=== PATIENT | female | born 1940 | race Caucasian/White ===

== ENCOUNTER → 2017-02-25 | Day surgery (SDC) | payer MEDICARE, BC ==
[~2017-02-25] VITALS: Ht 167.6 cm; Wt 80.6 kg
[~2017-02-25] MED LIST: ARICEPT10 MG PO; CALCIUM CARBON600 MG PO; CITRACAL+D(315M1 TAB PO; NORCO 5-325 TA1 EACH PO; OCUVITE WITH L1 EACH PO; PRAVACHOL20 MG PO; PROTONIX40 MG PO; VITAMIN B-125000 MC1 PO
--- NOTE | ~2017-02-25 | OR ---
PATIENT'S NAME: ESTEVAN [facility] AGE: 76 Y [address] ROOM: [place] [id number] LOCATION: [facility] – [place] ADMIT DATE: 02/25/2017 OR/Procedure Report DISCHARGE DATE: FAMILY PHYSICIAN: ARIANA CADENA APRN ATTENDING PHYSICIAN: Neri Galvan SURGEON: Neri Galvan MD YEAST TENDER: Addie Warner PA-C. DATE OF PROCEDURE: 02/25/2017 PREOPERATIVE DIAGNOSES: 1. Biliary colic. 2. Cholelithiasis. POSTOPERATIVE DIAGNOSIS: Chronic cholecystitis with cholelithiasis. PROCEDURE: Laparoscopic cholecystectomy. ANESTHESIA: General with 20 mL, 0.5% Marcaine with epinephrine. SPECIMEN: Gallbladder with gallstone. ESTIMATED BLOOD LOSS: Minimal. COMPLICATIONS: None. INDICATION: The patient is a 76-year-old young lady, who is a very active traveler who has been noticing for the last two months some multiple abdominal complaints. She has had some postprandial right upper quadrant epigastric discomfort as well as some lower abdominal discomfort with constipation and loose stools. She has had a previous colonoscopy within 2014 other than diverticulosis that was normal. Recent workup showed ultrasound and CAT scan both confirmed cholelithiasis with a distended gallbladder and mild thickening. Normal common bile duct. Normal liver function tests and white count. It was felt that the least majority of her symptoms could be contributed to biliary colic. We discussed laparoscopic cholecystectomy. She agreed to proceed. DESCRIPTION OF PROCEDURE: After informed consent, the patient was taken to the operating room; and after general endotracheal anesthesia, the patient's abdomen was prepped and draped into a sterile field. A formal time-out was performed. We confirmed the patient, planned procedure, administration of preop antibiotics. The local anesthetic was then infiltrated prior to each incision, the first one made below the umbilicus, carried down to identify the anterior fascia through which a Veress needle inserted and pneumoperitoneum created. An 11 mm trocar and laparoscope were inserted. Safe entry was PATIENT'S NAME: [facility]EVAN [facility] AGE: 76 Y [address] ROOM: [place] [address] LOCATION: [facility] – [place] ADMIT DATE: 02/25/2017 OR/Procedure Report DISCHARGE DATE: FAMILY PHYSICIAN: ARIANA CADENA APRN ATTENDING PHYSICIAN: Neri Galvan noted. The stomach was distended. Anesthesiologist did decompress it. The gallbladder was mildly thick wall and pale. It was distended. It was retracted with cephalad and had to taken down all the adhesions to the free wall of the gallbladder. After stripping down the transverse colon and duodenum, we were able to dissect the hepatoduodenal ligament. We took down the reflection of the gallbladder to the lateral liver bed to increase our critical view of safety. I dissected out and strip down a small cystic lymph node exposing the cystic artery, which was kind of almost twisted around the cystic duct. We isolated, clipped x3, and divided. A small cystic duct was then clipped x4 and divided with one clip remaining specimen side. The gallbladder was removed from the liver bed with electrocautery. It was placed into EndoCatch bag and brought out through the umbilical incision. We then irrigated the right upper quadrant. It was clear. Clips were secure. We used a 0-Vicryl for Endo Close device to close the fascial defect of the subxiphoid location. The remaining trocars were removed. Pneumoperitoneum released. The fascia defect at the umbilicus closed with 0 Vicryl. The skin closed with subcuticular 4-0 Vicryl. Upon completion of the procedure, I performed a deep briefing confirmation of our procedure, blood loss, and no complications noted. Instrument, sponge, and needle count were correct. NERI GALVAN MD WTS/modl /[id number] d: 02/25/17 0942 t: 03/23/17 1540, OPERATIVE SUMMARY
== END | disposition disaster alternative care site (69) ==
LOC: GPOC 02-24 17:00 → GSDC 05:59
PROC: 0FT44ZZ Resection of Gallbladder, Percutaneous Endoscopic Approach (ICD-10-PCS; principal; 2017-02-25)
DX: K80.20 Calculus of gallbladder without cholecystitis without obstruction (principal); F03.90 Unspecified dementia, unspecified severity, without behavioral disturbance, psychotic disturbance, mood disturbance, and anxiety; F32.0 Major depressive disorder, single episode, mild; K21.9 Gastro-esophageal reflux disease without esophagitis; M19.90 Unspecified osteoarthritis, unspecified site; E78.00 Pure hypercholesterolemia, unspecified; Z98.41 Cataract extraction status, right eye; Z98.42 Cataract extraction status, left eye; Z90.49 Acquired absence of other specified parts of digestive tract; Z90.710 Acquired absence of both cervix and uterus; Z98.890 Other specified postprocedural states; Z87.891 Personal history of nicotine dependence; Z79.899 Other long term (current) drug therapy
CPT/HCPCS: J0694; J1100; J2001; J2405; J3010; J7120